=== PATIENT | female | born 1965 | race Caucasian/White ===

== ENCOUNTER 2017-03-12 02:44 | Emergency (ER) | payer SELFPAY ==
--- NOTE | ~2017-03-12 | ER ---
PATIENT'S NAME: SHANI JERNIGAN [facility] AGE: 51 Y [address] ROOM: [place] [id number] LOCATION: [facility] ADMIT DATE: 03/12/2017 ER/Outpatient Report DISCHARGE DATE: FAMILY PHYSICIAN: Rashad Valles MD ATTENDING PHYSICIAN: Michael Grace CHIEF COMPLAINT: Pain under the breasts. HISTORY OF PRESENT ILLNESS: Around midnight, the patient noticed some significant discomfort in the epigastric region and below both breasts. It radiates to her back. She did not have palpitations. She tried taking a beta-jann that she has had for anxiety in the past and that did not help, and in fact, she did have some vomiting. She describes it as a sharp pressure. It has not gotten any better since its onset. It does not feel like prior episodes of heartburn or other concerning symptoms. She did have several drinks of alcohol yesterday and typically drinks two alcoholic beverages daily at least. She is a nonsmoker with no known other alternative medical history. She does have a family history of acute coronary syndrome. Past medical history, social history, medications, allergies are documented on the record and reviewed by me. REVIEW OF SYSTEMS: All systems reviewed and negative except as noted in the HPI. PHYSICAL EXAMINATION: VITAL SIGNS: Blood pressure is 143/73, pulse 54, respiratory rate is 18, SpO2 is 100% on room air, and pain is rated 8/10. GENERAL: Age-appropriate female, in obvious discomfort. No outward signs of respiratory distress. NEUROLOGIC: Awake and alert. GCS 15. No focal deficits. No asymmetry on exam. HEENT: Normocephalic, atraumatic. Eyes are PERRL. Oropharynx is clear. NECK: Supple. Trachea is midline. CHEST/HEART: Regular rate and rhythm, borderline bradycardia. No murmurs. LUNGS: Clear to auscultation bilateral with no rhonchi, wheezes, or rales. ABDOMEN: Soft, with discomfort in the epigastric region. No masses. Negative Valentine sign. The remainder of the abdominal exam was benign. No rebound or guarding. BACK: Normal to inspection and palpation. No CVA tenderness. EXTREMITIES: Warm and well perfused. No edema or deformities. SKIN: Clean, dry, and intact. No rashes. [facility] AGE: 51 Y [address] ROOM: [place] [address] LOCATION: [facility] ADMIT DATE: 03/12/2017 ER/Outpatient Report DISCHARGE DATE: FAMILY PHYSICIAN: Rashad Valles MD ATTENDING PHYSICIAN: Michael Grace LABORATORIES AND X-RAYS: Chest x-ray unremarkable per my review. Labs: Amylase 57, lipase 586, GGT is 22. CMS: Without appreciable abnormality other than a glucose of 129. LFTs including bilirubin are not elevated. Magnesium is 2.2. CPK is 114, CK-MB is 0.6, and troponin is below detectable threshold. CBC without abnormality. INR is below 1. EKG reveals sinus bradycardia, no comparison available. No ischemic changes. IMPRESSION: Pancreatitis, mild. EMERGENCY DEPARTMENT COURSE: The patient was seen and evaluated. Concern for ACS in addition to hepatobiliary pathology. Labs diagnostic of mild to moderate pancreatitis. The patient was given GI cocktail in addition to some morphine with improvement in her symptoms. She was able to tolerate an oral intake. She was also given aspirin. I recommended CT scan and admission for this issue. However, the patient has declined both of those management options. She has elected instead to try to manage herself at home. I have instructed her to remain n.p.o. for 48 hours other than water and Gatorade type electrolyte fluids. She can then reintroduce food as tolerated. I am recommending cessation of alcohol. She has morphine available at home for her symptoms. She is to return if worsening or any other concerns. Based on her labs and unusual presentation, I think she does not need further rule out for ACS as her presentation is not consistent with dissection at this time. All questions were answered, and the patient was discharged per her preference in good condition. MD STANISLAV DYER/kingsley /[id number] d: 03/12/17516 t: 03/15/17 0802, OUTPATIENT REPORT
[2017-03-12 03:14] LABS: BASOPHIL # 0.1 K/uL (0.0-0.2); BASOPHIL % 1.4 %; EOSINOPHIL # 0.3 K/uL (0.0-0.5); HEMOGLOBIN 12.6 g/dL (10.0-15.0); IMMATURE GRANULOCYTE % 0.2 %; LYMPHOCYTE % 32.4 %; MCH 32.1 pg (27.0-34.0); MCHC 34.1 gm/dL (32.0-36.5); MCV 94.1 fl (83.0-98.0); MONOCYTE # 0.8 K/uL (0.0-1.0); MONOCYTE % 12.9 %; MPV 11.2 fl (9.4-12.4); NEUTROPHIL # (ANC) 3.1 K/uL (1.8-7.8); NEUTROPHIL % 49.1 %; NRBC % 0 /100WBC (0-0.00); PLATELET COUNT 214 K/uL (150-450); RBC 3.93 M/uL (3.50-5.50); RDW-CV 12.5 % (11.9-14.6); WBC 6.3 K/uL (4.0-11.0)
[2017-03-12 03:23] LABS: INR - (THERAPEUTIC) 0.95 (0.92-1.07); PTT 25 SECONDS (25-32)
[2017-03-12 03:32] LABS: ALBUMIN 3.8 gm/dL (3.5-5.0); ALK PHOS 55 IU/L (33-138); ALT 23 IU/L (12-78); ANION GAP 13.9 (10.0-19.0); AST 21 IU/L (10-40); BLOOD UREA NITROGEN 14 mg/dL (6-24); CHLORIDE 107 mMol/L (96-110); CO2 24 mMol/L (22-32); CPK 114 IU/L (21-215); CREATININE 0.9 mg/dL (0.5-1.1); ESTIMATED GFR (MDRD EQUATION) > 60; MAGNESIUM 2.2 mg/dL (1.8-2.6); POTASSIUM 3.9 mMol/L (3.7-5.1); SODIUM 141 mMol/L (135-145); TOTAL BILIRUBIN 0.3 mg/dL (0.0-1.5); TOTAL PROTEIN 7.5 g/dL (6.0-8.4)
[2017-03-12] MEDS ORDERED: MAGNESIUM500 MG PO (15:28)
[2017-03-12] MEDS ORDERED: OMEGA POWER 11050 MG PO (15:29)
== END 2017-03-12 04:08 | disposition disaster alternative care site (69) ==
LOC: GMED 02:44
PROVIDERS: Emergency Medicine
DX: K85.90 Acute pancreatitis without necrosis or infection, unspecified (principal)
CPT/HCPCS: J2270

== ENCOUNTER 2017-03-12 13:24 | Emergency (ER) | payer SELFPAY ==
--- NOTE | ~2017-03-12 | ER ---
PATIENT'S NAME: SHANI JERNIGAN [facility] AGE: 51 Y [address] ROOM: [place] [address] LOCATION: ED ADMIT DATE: 03/12/2017 ER/Outpatient Report DISCHARGE DATE: 03/12/2017 FAMILY PHYSICIAN: Rashad Valles MD ATTENDING PHYSICIAN: Hollis Kowalski TIME OF ARRIVAL: 13:29. TIME OF EXAMINATION: 13:29. CHIEF COMPLAINT: Abdominal pain and vomiting. HISTORY OF PRESENT ILLNESS: The patient was here around 3 o'clock this morning and evaluated. Her lipase was elevated and she had pain in the right upper quadrant. The pain was relieved with some morphine and nausea was relieved with Zofran. She refused to have a CAT scan done at that time, and was sent home with a diagnosis of possible mild pancreatitis. She states that she went home, and she has continued to vomit ever since. She states it has been bile-colored and does not have any blood. She continues to have pain in the right upper quadrant. She has not felt feverish. She continues to urinate without difficulty. She has not had a cough. She denies having any chest pain. ALLERGIES: NO KNOWN ALLERGIES. CURRENT MEDICATIONS: On the chart and reviewed by me. PAST MEDICAL HISTORY: Restless legs syndrome. PAST SURGERY: . SOCIAL HISTORY: She presented to the ER tonight with her . She denies the use of tobacco. She does drink at least two drinks every night on a regular basis. REVIEW OF SYSTEMS: All negative other than those mentioned in the HPI. PATIENT'S NAME: SHANI JERNIGAN [facility] AGE: 51 Y [address] ROOM: [place] [address] LOCATION: [facility] ADMIT DATE: 03/12/2017 ER/Outpatient Report DISCHARGE DATE: 03/12/2017 FAMILY PHYSICIAN: Rashad Valles MD ATTENDING PHYSICIAN: Hollis Kowalski PHYSICAL EXAMINATION: VITAL SIGNS: She weighed 69.7 kg. Blood pressure was 139/68, pulse was 98, respirations were 28, temperature was 99 tympanic, and O2 saturation was 99% on room air. GENERAL: She is awake and alert and very uncomfortable. DERMATOLOGIC: Her skin is pink, warm, and dry. LUNGS: Respirations are slightly labored and rapid due to the pain. She was encouraged to take slow breaths. Lung sounds were clear throughout. HEART: Regular rate and rhythm. ABDOMEN: Round, soft, and tender in the right upper quadrant. Bowel sounds are present. NEUROLOGICAL: She walked in with a steady even gait, and moves all extremities strongly and equally. EMERGENCY DEPARTMENT COURSE: Saline lock was initiated. Fluids of normal saline were started at a wide- open rate. She was given Zofran 4 mg IV and morphine 2 mg IV. Lab work was drawn. CBC was within normal limits. Chem Panel: Sodium is 138, potassium is 3.6, and chloride is 104. Her amylase was 37 with a lipase of 147. Her procalcitonin was normal. Lactate was 2.4. CT scan was completed. Radiologist reports that the patient has gallstones and gastric fundus diverticulum. The patient continued to have nausea. She said the pain was better, but the nausea continued. She was given Phenergan 50 mg IM, and the fluids continued to run. With the Phenergan, she was able to get some rest. Her vital signs remained stable. She states that she was feeling better after approximately an hour of the Phenergan. A liter of fluids was finished. The patient states she would like to go home. IMPRESSION: 1. Abdominal pain. 2. Gallstones. 3. Gastric diverticulum. PLAN: Home, rest, and fluids. Encouraged her to avoid milk products for the next couple of days, and really monitor her diet. She was given information for contacting the extraction machine operator or she should contact her primary provider in the next 2 to 3 days. Prescription was written for Phenergan, and she still has pain medications at home from her initial visit. She and her verbalized understanding. SHEEBA SOTO APRN FOR HOLLIS KOWALSKI DO PATIENT'S NAME: SHANI JERNIGAN [facility] AGE: 51 Y [address] ROOM: [place] [address] LOCATION: [facility] ADMIT DATE: 03/12/2017 ER/Outpatient Report DISCHARGE DATE: 03/12/2017 FAMILY PHYSICIAN: Rashad Valles MD ATTENDING PHYSICIAN: Hollis Kowalski/kingsley /[id number] d: 03/13/17 0140 t: 03/24/17 1233, OUTPATIENT REPORT
[2017-03-12 13:54] LABS: BASOPHIL % 0.4 %; HEMATOCRIT 39.3 % (33.0-46.0); HEMOGLOBIN 13.7 g/dL (10.0-15.0); IMMATURE GRANULOCYTE # 0.1 K/uL (0.0-0.3); IMMATURE GRANULOCYTE % 0.6 %; LYMPHOCYTE % 11.6 %; MCHC 34.9 gm/dL (32.0-36.5); MCV 91.8 fl (83.0-98.0); MONOCYTE # 0.3 K/uL (0.0-1.0); MONOCYTE % 3.3 %; MPV 11.2 fl (9.4-12.4); NEUTROPHIL # (ANC) 7.5 K/uL (1.8-7.8); NEUTROPHIL % 84.1 %; NRBC % 0 /100WBC (0-0.00); PLATELET COUNT 232 K/uL (150-450); RBC 4.28 M/uL (3.50-5.50); RDW-CV 12.7 % (11.9-14.6); WBC 8.9 K/uL (4.0-11.0)
[2017-03-12 14:13] LABS: ALBUMIN 4.1 gm/dL (3.5-5.0); ANION GAP 16.6 (10.0-19.0); CALCIUM 9.2 mg/dL (8.5-10.5); POTASSIUM 3.6 mMol/L (3.7-5.1); TOTAL PROTEIN 8.2 g/dL (6.0-8.4)
[2017-03-12 14:17] LABS: TOTAL BILIRUBIN 0.6 mg/dL (0.0-1.5)
[2017-03-12] MEDS ORDERED: MAGNESIUM500 MG PO (15:28)
[2017-03-12] MEDS ORDERED: OMEGA POWER 11050 MG PO (15:29)
== END 2017-03-12 16:14 | disposition disaster alternative care site (69) ==
LOC: GMED 13:24
PROVIDERS: Nurse Practitioner Family
DX: K80.80 Other cholelithiasis without obstruction (principal); K31.4 Gastric diverticulum; G25.81 Restless legs syndrome; Z98.890 Other specified postprocedural states
CPT/HCPCS: J2270; J2405; J2550; J7030; Q9967